=== PATIENT | female | born 1995 | race Caucasian/White ===

== ENCOUNTER 2016-11-21 16:02 | Emergency (ER) | payer SELFPAY ==
[~2016-11-21 16:02] MED LIST: BACTRIM DS TABL1 TA1 PO; BIRTH CONTROL PILL PO; DIFLUCAN100 MG PO; FLAGYL PO; IBUPROFEN600 MG PO; LOMOTIL TABLET1 TAB PO; MOTRIN600 MG PO; NO MEDICATIONS; PHENERGAN25 M1 PO; PYRIDIUM PO; ZOFRANODT PO
== END 2016-11-21 16:05 | disposition home or self-care (01) ==
LOC: CFTX 16:02
DX: L02.415 Cutaneous abscess of right lower limb (principal); E78.5 Hyperlipidemia, unspecified
CPT/HCPCS: 99282

== ENCOUNTER 2017-01-13 08:50 | Emergency (ER) | payer OTHER | END 2017-01-13 09:30 | disposition home or self-care (01) | LOC: CED 08:50 | DX: R21 Rash and other nonspecific skin eruption (principal); M79.661 Pain in right lower leg; M79.662 Pain in left lower leg; M79.621 Pain in right upper arm; M79.622 Pain in left upper arm; Z79.1 Long term (current) use of non-steroidal anti-inflammatories (NSAID) | CPT/HCPCS: 99282 ==